=== PATIENT | male | born 1955 | race Caucasian/White ===

== ENCOUNTER 2017-11-12 17:03 | Emergency (ER) | payer MEDICAID ==
--- OUTSIDE RECORDS SUMMARY | 2017-11-12 17:29 | XMS REPORT ---
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 Active Onset: 12/02/2014 Mild mental handicap Rakesh Katz M.D. Active Social History Type Date Description Comments ETOH Use Denies alcohol use Smoking Light tobacco smoker (10 or fewer Usually about 2 per day cigarettes/day) Allergies, Adverse Reactions, Alerts Date Description Reaction Status Severity Comments 12/15/2014 Penicillins active 12/01/2014 NKDA inactive Medications Medication Date Status Form Strength Qnty SIG Indications Ordering Provider Clopidogrel 07/01/ Active Tablets 75mg 30tabs 1 by mouth Z86.73 Rakesh Damon Bisulfate 2018 every day Jazmin Katz Depakote ER 08/17/ Active Tablets ER 500mg 60tabs 2 every G40.209 Rakesh Damon 2017 24HR night at [place], bedtime M.DKarina Lisinopril / Active Tablets 30mg take 1 Unknown 0000 tablet by mouth once daily Lumigan / Active Solution 0.01% As Unknown 0000 directed Dorzolamide / Active Solution 22.3-6.8mg As Unknown HCL/Timolol 0000 /ml directed.. Maleate Keppra 04/13/ Hx Tablets 500mg 540tab 3 po bid. Rakesh Damon 2014 - s [place], 10/25/ M.D. 2016 Vitamin B-12 12/15/ Hx Liquid 1000mcg/15 90ml inject Rakesh Damon 2014 - ML 1000 mcg [place], 02/14/ qweek for M.D. 2014 4 weeks Timoptic / Hx Solution 0.5% instill Unknown 0000 - one drop both eyes 2018 every morning Latanoprost / Hx Solution 0.005% 1 gtt both Unknown 0000 - eyes qhs 2017 Carbamazepine / Hx Tablets 200mg 120tab 1 by mouth Lillian 0000 - s corinna Pope NP 06/28/ times 2016 daily Levetiracetam / Hx Tablets 500mg 1 by mouth Unknown 0000 - twice a 11/24/ day 2014 Vitamin B-12 / Hx Tablets 2000mcg 1 by mouth Unknown 0000 - every day 2016 Aspirin 81 Low / Hx Chewtabs 81mg 1 by mouth Unknown Dose 0000 - every day 2017 Vital Signs Date Vital Result Comment 10/16/2017 Height 64.75 inches 5'4.75" Weight 98.50 lb Heart Rate 68 /min BP Systolic 136 mmHg BP Diastolic 70 mmHg Respiratory Rate 16 /min BMI (Body Mass Index) 16.5 kg/m2 07/01/2017 Height 64.75 inches 5'4.75" Weight 103.00 lb Heart Rate 70 /min BP Systolic 140 mmHg BP Diastolic 80 mmHg BMI (Body Mass Index) 17.3 kg/m2 11/06/2016 Height 64.75 inches 5'4.75" Weight 101.25 lb Heart Rate 74 /min BP Systolic Sitting 144 mmHg BP Diastolic Sitting 60 mmHg Respiratory Rate 13 /min BMI (Body Mass Index) 17.0 kg/m2 08/17/2016 Height 64.75 inches 5'4.75" Weight 93.12 lb Heart Rate 70 /min BP Systolic Sitting 138 mmHg BP Diastolic Sitting 70 mmHg Respiratory Rate 18 /min O2 % BldC Oximetry 96 % BMI (Body Mass Index) 15.6 kg/m2 07/06/2016 Height 64.75 inches 5'4.75" Weight 93.50 lb Heart Rate 67 /min BP Systolic Sitting 140 mmHg BP Diastolic Sitting 84 mmHg Respiratory Rate 16 /min BMI (Body Mass Index) 15.7 kg/m2 01/10/2016 Height 64.75 inches 5'4.75" Weight 90.38 lb Heart Rate 72 /min BP Systolic Sitting 130 mmHg BP Diastolic Sitting 74 mmHg Respiratory Rate 14 /min BMI (Body Mass Index) 15.2 kg/m2 06/29/2015 Height 64.75 inches 5'4.75" Weight 94.38 lb Heart Rate 68 /min BP Systolic Sitting 130 mmHg BP Diastolic Sitting 66 mmHg Respiratory Rate 16 /min BMI (Body Mass Index) 15.8 kg/m2 04/13/2015 Height 64.75 inches 5'4.75" Weight 103.00 lb Heart Rate 64 /min BP Systolic Sitting 138 mmHg BP Diastolic Sitting 80 mmHg Respiratory Rate 16 /min BMI (Body Mass Index) 17.3 kg/m2 02/15/2015 Height 64.75 inches 5'4.75" Weight 99.50 lb Heart Rate 64 /min BP Systolic Sitting 144 mmHg BP Diastolic Sitting 78 mmHg Respiratory Rate 16 /min BMI (Body Mass Index) 16.7 kg/m2 12/15/2014 Height 64.75 inches 5'4.75" Heart Rate 56 /min BP Systolic Sitting 146 mmHg BP Diastolic Sitting 78 mmHg Respiratory Rate 16 /min 12/02/2014 Height 64.75 inches 5'4.75" Weight 100.00 lb Heart Rate 84 /min BP Systolic Sitting 164 mmHg BP Diastolic Sitting 86 mmHg Respiratory Rate 20 /min BMI (Body Mass Index) 16.8 kg/m2 Results Test Date Test Result H/L Range Note Laboratory test 11/07/2016 Valproic Acid 101.0 g/mL High 50-100 finding (Depakene) CBC Auto Diff 11/07/2016 White Blood Count 5.7 10^3/uL 3.5-10.8 Red Blood Count 4.64 10^6/uL 4.0-5.4 Hemoglobin 14.4 g/dL 14.0-18.0 Hematocrit 43 % 42-52 Mean Corpuscular Volume 94 fL 80-94 Mean Corpuscular Hemoglobin 31 pg 27-31 Mean Corpuscular HGB Conc 33 g/dL 31-36 Red Cell Distribution Width 15 % 10.5-15 Platelet Count 172 10^3/uL 150-450 Mean Platelet Volume 8 um3 7.4-10.4 Abs Neutrophils 2.2 10^3/uL 1.5-7.7 Abs Lymphocytes 2.4 10^3/uL 1.0-4.8 Abs Monocytes 0.9 10^3/uL High 0-0.8 Abs Eosinophils 0.2 10^3/uL 0-0.6 Abs Basophils 0.1 10^3/uL 0-0.2 Abs Nucleated RBC 0 10^3/uL Granulocyte % 38.7 % 38-83 Lymphocyte % 41.5 % 25-47 Monocyte % 15.4 % High 1-9 Eosinophil % 3.5 % 0-6 Basophil % 0.9 % 0-2 Nucleated Red Blood Cells % 0.1 Comp Metabolic Panel 11/07/2016 Sodium 132 mmol/L Low 133-145 Potassium 4.2 mmol/L 3.5-5.0 Chloride 98 mmol/L Low 101-111 Co2 Carbon Dioxide 31 mmol/L 22-32 Anion Gap 3 mmol/L 2-11 Glucose 80 mg/dL 70-100 Blood Urea Nitrogen 8 mg/dL 6-24 Creatinine 0.59 mg/dL Low 0.67-1.17 BUN/Creatinine Ratio 13.6 8-20 Calcium 9.5 mg/dL 8.6-10.3 Total Protein 6.2 g/dL Low 6.4-8.9 Albumin 4.1 g/dL 3.2-5.2 Globulin 2.1 g/dL 2-4 Albumin/Globulin Ratio 2.0 1-3 Total Bilirubin 0.50 mg/dL 0.2-1.0 Alkaline Phosphatase 58 U/L 34-104 Alt 23 U/L 7-52 Ast 28 U/L 13-39 Egfr Non- 139.7 >60 Egfr 179.6 >60 1 Laboratory test finding 11/07/2016 Vitamin D, 1,25 Dihydroxy 63 pg/mL 18- 64 2 Comp Metabolic Panel 07/09/2016 Sodium 137 mmol/L 133-145 Potassium 4.7 mmol/L 3.5-5.0 Chloride 105 mmol/L 101-111 Co2 Carbon Dioxide 28 mmol/L 22-32 Anion Gap 4 mmol/L 2-11 Glucose 88 mg/dL 70-100 Blood Urea Nitrogen 11 mg/dL 6-24 Creatinine 0.62 mg/dL Low 0.67-1.17 BUN/Creatinine Ratio 17.7 8-20 Calcium 10.0 mg/dL 8.6-10.3 Total Protein 6.4 g/dL 6.4-8.9 Albumin 4.0 g/dL 3.2-5.2 Globulin 2.4 g/dL 2-4 Albumin/Globulin Ratio 1.7 1-3 Total Bilirubin 0.30 mg/dL 0.2-1.0 Alkaline Phosphatase 99 U/L 34-104 Alt 13 U/L 7-52 Ast 17 U/L 13-39 Egfr Non- 131.9 >60 Egfr 169.6 >60 3 Laboratory test finding 07/09/2016 Levetiracetam (Keppra) 40.4 g/mL 4 Laboratory test finding 02/18/2015 Carbamazepine (Tegretol) 6.8 g/mL 4.0-12.0 CBC Auto Diff 02/18/2015 White Blood Count 5.1 10^3/uL 4.8-10.8 Red Blood Count 4.67 10^6/uL 4.0-5.4 Hemoglobin 14.9 g/dL 14.0-18.0 Hematocrit 44 % 42-52 Mean Corpuscular Volume 94 fL 80-94 Mean Corpuscular Hemoglobin 32 pg High 27-31 Mean Corpuscular HGB Conc 34 g/dL 31-36 Red Cell Distribution Width 14 % 10.5-15 Platelet Count 240 10^3/uL 150-450 Mean Platelet Volume 6 um3 Low 7.4-10.4 Abs Neutrophils 2.1 10^3/uL 1.5-7.7 Abs Lymphocytes 2.2 10^3/uL 1.0-4.8 Abs Monocytes 0.6 10^3/uL 0-0.8 Abs Eosinophils 0.2 10^3/uL 0-0.6 Abs Basophils 0 10^3/uL 0-0.2 Abs Nucleated RBC 0 10^3/uL Granulocyte % 41.3 % 38-83 Lymphocyte % 42.5 % 25-47 Monocyte % 12.0 % High 1-9 Eosinophil % 3.3 % 0-6 Basophil % 0.9 % 0-2 Nucleated Red Blood Cells % 0 Comp Metabolic Panel 02/18/2015 Sodium 130 mmol/L Low 133-145 Potassium 4.5 mmol/L 3.5-5.0 Chloride 96 mmol/L Low 101-111 Co2 Carbon Dioxide 30 mmol/L 22-32 Anion Gap 4 mmol/L 2-11 Glucose 73 mg/dL 70-100 Blood Urea Nitrogen 4 mg/dL Low 6-24 Creatinine 0.62 mg/dL Low 0.67-1.17 BUN/Creatinine Ratio 6.5 Low 8-20 Calcium 9.4 mg/dL 8.6-10.3 Total Protein 6.2 g/dL Low 6.4-8.9 Albumin 4.2 g/dL 3.2-5.2 Globulin 2.0 g/dL 2-4 Albumin/Globulin Ratio 2.1 1-3 Total Bilirubin 0.30 mg/dL 0.2-1.0 Alkaline Phosphatase 111 U/L High 34-104 Alt 14 U/L 7-52 Ast 18 U/L 13-39 Egfr Non- 132.8 >60 Egfr 170.8 >60 5 Laboratory test 02/18/2015 Vitamin B12 > 1450 pg/mL High 180-914 6 finding Laboratory test 12/15/2014 Carbamazepine 9.0 g/mL 4.0-12.0 finding (Tegretol) 1 Because ethnic data is not always readily available, this report includes an eGFR for both -Americans and non- Americans. The National Kidney Disease Education Program (NKDEP) does not endorse the use of the MDRD equation for patients that are not between the ages of 18 and 70, are , have extremes of body size, muscle mass, or nutritional status, or are non- or non-. According to the National Kidney Foundation, irrespective of diagnosis, the stage of the disease is based on the level of kidney function: Stage Description GFR(mL/min/1.73 m(2)) 1 Kidney damage with normal or decreased GFR 90 2 Kidney damage with mild decrease in GFR 60-89 3 Moderate decrease in GFR 30-59 4 Severe decrease in GFR 15-29 5 Kidney failure <15 (or dialysis) 2 ADDITIONAL INFORMATION This test was developed and its performance characteristics determined by [facility] in a manner consistent with CLIA requirements. This test has not been cleared or approved by the U.S. Food and Drug Administration. Test Performed by: [facility] [place] [id number] 3 Because ethnic data is not always readily available, this report includes an eGFR for both -Americans and non- Americans. The National Kidney Disease Education Program (NKDEP) does not endorse the use of the MDRD equation for patients that are not between the ages of 18 and 70, are , have extremes of body size, muscle mass, or nutritional status, or are non- or non-. According to the National Kidney Foundation, irrespective of diagnosis, the stage of the disease is based on the level of kidney function: Stage Description GFR(mL/min/1.73 m(2)) 1 Kidney damage with normal or decreased GFR 90 2 Kidney damage with mild decrease in GFR 60-89 3 Moderate decrease in GFR 30-59 4 Severe decrease in GFR 15-29 5 Kidney failure <15 (or dialysis) 4 REFERENCE VALUE 12.0 - 46.0 ADDITIONAL INFORMATION This test was developed and its performance characteristics determined by [facility] in a manner consistent with CLIA requirements. This test has not been cleared or approved by the U.S. Food and Drug Administration. Test Performed by: [facility] - [address] [address] Restaurant Service Manager: Erik Reddy II, M.D., Ph.D. 5 Because ethnic data is not always readily available, this report includes an eGFR for both -Americans and non- Americans. The National Kidney Disease Education Program (NKDEP) does not endorse the use of the MDRD equation for patients that are not between the ages of 18 and 70, are , have extremes of body size, muscle mass, or nutritional status, or are non- or non-. According to the National Kidney Foundation, irrespective of diagnosis, the stage of the disease is based on the level of kidney function: Stage Description GFR(mL/min/1.73 m(2)) 1 Kidney damage with normal or decreased GFR 90 2 Kidney damage with mild decrease in GFR 60-89 3 Moderate decrease in GFR 30-59 4 Severe decrease in GFR 15-29 5 Kidney failure <15 (or dialysis) 6 Normal Range 180 to 914 Indeterminate Range 145 to 180 Deficient Range <145 Procedures Date CPT Code Description Status 12/07/2014 42412 EKG, Interpretation Only Completed Encounters Type Date Location Provider CPT E/M Dx Office Visit 07/01/2017 [facility] Rakesh Katz 45028 G40.219 9:00a M.DKarina R09.89 F17.210 Office Visit 11/06/2016 1:00p [facility] Rakesh Katz 87809 G40.209 [facility] M.D. M25.50 Z79.899 Office Visit 08/17/2016 12:00p [facility] Rakesh Katz 65004 G40.209 [facility] M.DKarina I67.82 Z71.6 Office Visit 07/06/2016 3:45p [facility] Rakesh Katz 29347 G40.209 [facility] M.DKarina Office Visit 01/10/2016 8:45a [facility] Rakesh Katz 59597 G40.209 [facility] M.D. Office Visit 06/29/2015 9:30a [facility] Rakesh Katz 59875 G40.209 [facility] M.D. Office Visit 04/13/2015 1:45p [facility] Rakesh Katz 05624 G40.209 [facility] M.D. Office Visit 02/15/2015 3:00p [facility] Rakesh Katz 22352 G40.209 [facility] MKarinaDKarina E53.9 Office Visit 12/15/2014 3:45p [facility] Rakesh Katz 05437 345.40 [facility] M.DKarina 317 266.9 265.1 Office Visit 12/07/2014 11:07a [facility], Kashif Kiserkris, [address] 966.3 Hospitalists Jazmin 345.90 Office Visit 12/06/2014 11:07a [facility], Kashif Wilalrd, [address]648 966.3 Hospitalists Jazmin 345.90 Office Visit 12/02/2014 9:00a [facility] Rakesh Katz, [address]324 345.40 Jazmin 317 Plan of Care Future Appointment(s):04/23/2018 10:00 am - Rakes[facility] Katz M.D. at [facility] - Rakesh Katz M.D.G40.219 Local-rel symptc epi w cmplx part seiz, ntrct, w/o stat epiFollow up:6 MONTHSRecommendations:blood test today at [id number] Nicotine dependence, cigarettes, uncomplicated
[2017-11-12 18:05] LABS: ABS Basophils 0 10^3/ul (0-0.2); ABS Eosinophils 0.2 10^3/ul (0-0.6); ABS Lymphocytes 1.6 10^3/ul (1.0-4.8); ABS Monocytes 0.6 10^3/ul (0-0.8); ABS Neutrophils 2.4 10^3/ul (1.5-7.7); ABS Nucleated RBC 0 10^3/ul; Eosinophil % 3.8 % (0-6); Hematocrit 46 % (42-52); Hemoglobin 15.8 g/dl (14.0-18.0); Lymphocyte % 32.8 % (25-47); Mean Corpuscular HGB Conc 34 g/dl (31-36); Mean Corpuscular Hemoglobin 32 pg (27-31); Mean Corpuscular Volume 94 fL (80-94); Mean Platelet Volume 7.1 um3 (7.4-10.4); Nucleated Red Blood Cells % 0.1; Platelet Count 166 10^3/ul (150-450); Red Blood Count 4.86 10^6/ul (4.00-5.40); Red Cell Distribution Width 14 % (10.5-15); White Blood Count 4.8 10^3/ul (3.5-10.8)
[2017-11-12 18:14] LABS: INR 0.96 (0.77-1.02)
[2017-11-12 18:24] LABS: EGFR Non-African American 114.3 (>60)
[2017-11-12 19:24] LABS: Urine Appearance Clear; Urine Blood Negative (Negative); Urine Color Yellow; Urine Ketones Trace (Negative); Urine Protein Negative (Negative); Urine Urobilinogen Negative (Negative)
--- NOTE | 2017-11-12 19:24 | RAD ---
INDICATION: The patient woke on the floor and/or had a seizure COMPARISON: MRI of the brain dated July 11, 2017 TECHNIQUE: Contiguous axial sections of the brain were obtained from the skull base to the vertex without contrast. FINDINGS: The ventricles, cisterns and sulci are within normal limits. There is periventricular and subcortical white matter hypoattenuation, similar to the prior MRI of the brain, most consistent with chronic microvascular disease. The huffman-white matter differentiation is adequately maintained and there is no sulcal effacement. No significant focal abnormality or mass effect is present. There is coarse atherosclerotic calcification of the bilateral petrous carotid arteries and the right vertebral artery. There is no evidence for intracranial hemorrhage. 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 No significant focal osseous abnormality is present. The visualized portion of the paranasal sinuses appear clear. The mastoid air cells are well aerated bilaterally. IMPRESSION: Chronic findings as described above without CT evidence of acute intracranial abnormality or acute traumatic injury.
[2017-11-12 19:41] VITALS: BP 162/67
--- NOTE | 2017-11-12 19:41 | ED ---
Jose Angel Wong Angela, scribed for Zackary Costa MD on 11/12/17 at 1741 . Neurological HPI - HPI Summary HPI Summary: This pt is a 62 y/o male presenting to [facility] via EMS for an unwitnessed seizure today. He has hx of recurrent seizures, he states his last one was in September 2017. Pt reports he was taking a nap today when he awoke on the floor. He does not remember the seizure. He notes head strike where he sustained a bruise on his forehead. Pt currently reports feeling ok. Denies headache, chest pain, SOB. Pt takes Depakote for seizures and states he has been taking his medications every day as prescribed. His neurologist is Dr. Katz. He is anticoagulated. - History of Current Complaint Stated Complaint: SEIZURE Time Seen by Provider: 11/12/17 17:12 Hx Obtained From: Patient Onset/Duration: Sudden Onset, Resolved Timing: Sudden Onset Current Severity: None Pain Intensity: 0 - denies any pain Pain Scale Used: 0-10 Numeric Character: Other: - seizure Aggravating: Nothing Alleviating: Nothing Associated Signs and Symptoms: Positive: Seizure. Negative: Headache, Fever, Chest Pain, Shortness of Breath - Additional Pertinent History Primary Care Physician: [id number] - Allergy/Home Medications Allergies/Adverse Reactions: Allergies Allergy/AdvReac Type Severity Reaction Status Date / Time Penicillins Allergy Dizziness Verified 11/12/17 17:29 Home Medications: Home Medications Bimatoprost 0.01% OPHTH (NF) [Lumigan 0.01% OPHTH (NF)] 1 drop BOTH EYES DAILY 11/12/17 [History Confirmed 11/12/17] Clopidogrel TAB* [Plavix TAB*] 75 mg PO DAILY 11/12/17 [History Confirmed ] Divalproex ER TAB(*) [Depakote ER TAB(*)] 1,000 mg PO BEDTIME 11/12/17 [History Confirmed 11/12/17] Dorzolamide/Timolol OPTH (NF) [Cosopt (NF)] 1 drop BOTH EYES DAILY 11/12/17 [ History Confirmed 11/12/17] Lisinopril TAB* [Prinivil TAB*] 30 mg PO DAILY 11/12/17 [History Confirmed 11/12] PMH/Surg Hx/FS Hx/Imm Hx Endocrine/Hematology History: Denies: Hx Diabetes Cardiovascular History: Reports: Hx Hypertension Denies: Hx Pacemaker/ICD History: Denies: Hx Renal Disease Sensory History: Reports: Hx Cataracts - BILATERAL, Hx Contacts or Glasses, Hx Glaucoma Denies: Hx Hearing Aid Opthamlomology History: Reports: Hx Cataracts - BILATERAL, Hx Contacts or Glasses, Hx Glaucoma Neurological History: Reports: Hx Seizures - ADULT ONSET SEIZURES, Hx Transient Ischemic Attacks (TIA) Psychiatric History: Denies: Hx Panic Disorder - Surgical History Surgery Procedure, Year, and Place: BILATERAL CATARACTS 2015 Infectious Disease History: No Infectious Disease History: Denies: Traveled Outside the [place] in Last 30 Days - Family History Known Family History: Positive: Cardiac Disease, Hypertension Family History: Thyroid disease - Social History Alcohol Use: None Substance Use Type: Reports: None Smoking Status (MU): Light Every Day Tobacco Smoker Type: Cigarettes Amount Used/How Often: 2/3 cigarettes a day Have You Smoked in the Last Year: Yes Review of Systems Negative: Fever Negative: Chest Pain Negative: Shortness Of Breath Positive: Bruising - on forehead Neurological: Other - POS: seizure Negative: Headache All Other Systems Reviewed And Are Negative: Yes Physical Exam - Summary Physical Exam Summary: Appearance: The patient is well-nourished in no acute distress and in no acute pain. Skin: The skin is warm and dry and skin color reflects adequate perfusion. HEENT: The head is normocephalic. Pt has a bruise on his forehead and over left eyebrow. The pupils are equal and reactive. The conjunctivae are clear and without drainage. Nares are patent and without drainage. Mouth reveals moist mucous membranes and the throat is without erythema and exudate. The external ears are intact. The ear canals are patent and without drainage. The tympanic membranes are intact. Neck: the neck is supple with full range of motion and non-tender. There are no carotid bruits. There is no neck vein distension. Respiratory: Chest is non-tender. Lungs are clear to auscultation and breath sounds are symmetrical and equal. Cardiovascular: Heart is regular rate and rhythm. There is no murmur or rub auscultated. There is no peripheral edema and pulses are symmetrical and equal. Abdomen: The abdomen is soft and non-tender. There are normal bowel sounds heard in all four quadrants and there is no organomegaly palpated. Musculoskeletal: There is no back tenderness noted. Extremities are non-tender with full range of motion. There is good capillary refill. There is no peripheral edema or calf tenderness elicited. Neurological: Patient is alert and oriented to person, place and time. The patient has symmetrical motor strength in all four extremities. Cranial nerves are grossly intact. Deep tendon reflexes are symmetrical and equal in all four extremities. Psychiatric: The patient has an appropriate affect and does not exhibit any anxiety or depression. GCS: 15 Triage Information Reviewed: Yes Vital Signs On Initial Exam: Initial Vitals Temp Pulse Resp BP Pulse Ox 97.5 F 62 16 148/65 95 11/12/17 17:23 11/12/17 17:23 11/12/17 17:23 11/12/17 17:23 11/12/17 17:23 Vital Signs Reviewed: Yes Diagnostics - Vital Signs Vital Signs Temp Pulse Resp BP Pulse Ox 11/12/17 17:23 97.5 F 62 16 148/65 95 - Laboratory Lab Results: Lab Results 11/12/17 11/12/17 11/12/17 Range/Units 17:55 17:55 17:55 WBC 4.8 (3.5-10.8) 10^3/ul RBC 4.86 (4.00-5.40) 10^6/ul Hgb 15.8 (14.0-18.0) g/dl Hct 46 (42-52) % MCV 94 (80-94) fL MCH 32 H (27-31) pg MCHC 34 (31-36) g/dl RDW 14 (10.5-15) % Plt Count 166 (150-450) 10^3/ul MPV 7.1 L (7.4-10.4) um3 Neut % (Auto) 50.6 (38-83) % Lymph % (Auto) 32.8 (25-47) % Tyrrell % (Auto) 12.0 H (0-7) % Eos % (Auto) 3.8 (0-6) % Baso % (Auto) 0.8 (0-2) % Absolute Neuts (auto) 2.4 (1.5-7.7) 10^3/ul Absolute Lymphs (auto) 1.6 (1.0-4.8) 10^3/ul Absolute Monos (auto) 0.6 (0-0.8) 10^3/ul Absolute Eos (auto) 0.2 (0-0.6) 10^3/ul Absolute Basos (auto) 0 (0-0.2) 10^3/ul Absolute Nucleated RBC 0 10^3/ul Nucleated RBC % 0.1 INR (Anticoag Therapy) 0.96 (0.77-1.02) Sodium 130 L (135-145) mmol/L Potassium 3.9 (3.5-5.0) mmol/L Chloride 95 L (101-111) mmol/L Carbon Dioxide 27 (22-32) mmol/L Anion Gap 8 (2-11) mmol/L BUN 12 (6-24) mg/dL Creatinine 0.70 (0.67-1.17) mg/dL Est GFR ( Amer) 147.0 (>60) Est GFR (Non-Af Amer) 114.3 (>60) BUN/Creatinine Ratio 17.1 (8-20) Glucose 99 (70-100) mg/dL Lactic Acid (0.5-2.0) mmol/L Calcium 9.8 (8.6-10.3) mg/dL Magnesium 2.0 (1.9-2.7) mg/dL Total Bilirubin 0.50 (0.2-1.0) mg/dL AST 18 (13-39) U/L ALT 8 (7-52) U/L Alkaline Phosphatase 53 (34-104) U/L Total Protein 6.6 (6.4-8.9) g/dL Albumin 4.0 (3.2-5.2) g/dL Globulin 2.6 (2-4) g/dL Albumin/Globulin Ratio 1.5 (1-3) Urine Color Urine Appearance Urine pH (5-9) Ur Specific [place] (1.010-1.030) Urine Protein (Negative) Urine Ketones (Negative) Urine Blood (Negative) Urine Nitrate (Negative) Urine Bilirubin (Negative) Urine Urobilinogen (Negative) Ur Leukocyte Esterase (Negative) Urine Glucose (Negative) Valproic Acid 129.0 H (50-100) mcg/mL 11/12/17 11/12/17 Range/Units 17:55 19:09 WBC (3.5-10.8) 10^3/ul RBC (4.00-5.40) 10^6/ul Hgb (14.0-18.0) g/dl Hct (42-52) % MCV (80-94) fL MCH (27-31) pg MCHC (31-36) g/dl RDW (10.5-15) % Plt Count (150-450) 10^3/ul MPV (7.4-10.4) um3 Neut % (Auto) (38-83) % Lymph % (Auto) (25-47) % Tyrrell % (Auto) (0-7) % Eos % (Auto) (0-6) % Baso % (Auto) (0-2) % Absolute Neuts (auto) (1.5-7.7) 10^3/ul Absolute Lymphs (auto) (1.0-4.8) 10^3/ul Absolute Monos (auto) (0-0.8) 10^3/ul Absolute Eos (auto) (0-0.6) 10^3/ul Absolute Basos (auto) (0-0.2) 10^3/ul Absolute Nucleated RBC 10^3/ul Nucleated RBC % INR (Anticoag Therapy) (0.77-1.02) Sodium (135-145) mmol/L Potassium (3.5-5.0) mmol/L Chloride (101-111) mmol/L Carbon Dioxide (22-32) mmol/L Anion Gap (2-11) mmol/L BUN (6-24) mg/dL Creatinine (0.67-1.17) mg/dL Est GFR ( Amer) (>60) Est GFR (Non-Af Amer) (>60) BUN/Creatinine Ratio (8-20) Glucose (70-100) mg/dL Lactic Acid 1.5 (0.5-2.0) mmol/L Calcium (8.6-10.3) mg/dL Magnesium (1.9-2.7) mg/dL Total Bilirubin (0.2-1.0) mg/dL AST (13-39) U/L ALT (7-52) U/L Alkaline Phosphatase (34-104) U/L Total Protein (6.4-8.9) g/dL Albumin (3.2-5.2) g/dL Globulin (2-4) g/dL Albumin/Globulin Ratio (1-3) Urine Color Yellow Urine Appearance Clear Urine pH 6.0 (5-9) Ur Specific [place] 1.010 (1.010-1.030) Urine Protein Negative (Negative) Urine Ketones Trace A (Negative) Urine Blood Negative (Negative) Urine Nitrate Negative (Negative) Urine Bilirubin Negative (Negative) Urine Urobilinogen Negative (Negative) Ur Leukocyte Esterase Negative (Negative) Urine Glucose Negative (Negative) Valproic Acid (50-100) mcg/mL Result Diagrams: 11/12/17 17:55 11/12/17 17:55 Lab Statement: Any lab studies that have been ordered have been reviewed, and results considered in the medical decision making process. - CT Brain CT CT Interpretation: No Acute Changes - IMPRESSION: Chronic findings as described above without CT evidence of acute intracranial abnormality or acute traumatic injury. Dr. Costa has reviewed this radiology report. CT Interpretation Completed By: Radiologist Course/Dx - Course Course Of Treatment: Mr. Del Valle presented after a breakthrough seizure. He states he's been taking his Depakote as instructed and has breakthrough seizures periodically. Seizure was unwitnessed and he fell out of bed and took a pretty good blow to his forehead leaving a contusion. He is on Plavix and therefore a head CT was obtained which was negative. The rest of his workup was also negative and I recommended follow-up with Dr. Katz who is currently his neurologist. - Diagnoses Provider Diagnoses: Breakthrough seizure Discharge - Sign-Out/Discharge Documenting (check all that apply): Discharge/Admit/Transfer - Discharge - Discharge Plan Condition: Stable Disposition: HOME Patient Education Materials: Recurrent Seizures in Adults (ED) Referrals: Janae Clarke MD [Primary Care Provider] - Rakesh Katz MD [Medical Doctor] - Additional Instructions: Please follow up with Dr. Katz, your neurologist. RETURN TO THE ED FOR ANY WORSENING SYMPTOMS. - Billing Disposition and Condition Condition: STABLE Disposition: Home The documentation as recorded by the Jose Angel mahan Angela accurately reflects the service I personally performed and the decisions made by , Zackary Costa MD.
== END 2017-11-12 19:43 | disposition home or self-care (01) ==
LOC: ED 17:03
DX: G40.909 Epilepsy, unspecified, not intractable, without status epilepticus (principal); S00.83XA Contusion of other part of head, initial encounter; W06.XXXA Fall from bed, initial encounter; Y92.9 Unspecified place or not applicable; I10 Essential (primary) hypertension; F17.210 Nicotine dependence, cigarettes, uncomplicated; Z79.02 Long term (current) use of antithrombotics/antiplatelets; Z86.73 Personal history of transient ischemic attack (TIA), and cerebral infarction without residual deficits; Z88.0 Allergy status to penicillin
CPT/HCPCS: 36415; 70450; 80053; 80164; 81003; 83605; 83735; 85025; 85610; 99283